=== PATIENT | female | born 1985 | race African-American/Black ===

== ENCOUNTER 2017-09-23 15:46 | Emergency (ER) | payer OTHER ==
[~2017-09-23] VITALS: Ht 162.6 cm; Wt 108.0 kg
[~2017-09-23 15:46] MED LIST: MACROBID100 MG PO; PROAIR RESPICL90 MCG IH
[2017-09-23] MEDS ORDERED: PREDNISONE20 MG PO (17:41)
[2017-09-23] MEDS ORDERED: VENTOLIN HFA18 GM IH (17:41)
[2017-09-23 17:54] VITALS: BP 133/81
== END 2017-09-23 17:56 | disposition home or self-care (01) ==
LOC: EME 15:46
DX: J45.909 Unspecified asthma, uncomplicated (principal); Z79.51 Long term (current) use of inhaled steroids; Z88.2 Allergy status to sulfonamides; Z88.1 Allergy status to other antibiotic agents; Z88.8 Allergy status to other drugs, medicaments and biological substances
CPT/HCPCS: 71046; 94640; 99281; 99283; J1100